=== PATIENT | male | born 1975 | race Hispanic/Latino ===

== ENCOUNTER 2018-05-19 19:26 | Emergency (ER) | payer BC ==
[2018-05-19] MEDS ORDERED: IBUPROFEN 400 MG TAB ONE (20:05)
[2018-05-19] MEDS ORDERED: NA CHLORIDE 0.9% 50 ML IV ONE (20:05)
[2018-05-19] MEDS ORDERED: DEXAMETHASONE 4 MG/ML VIAL ONE (20:05)
[2018-05-19] MEDS ORDERED: CEFTRIAXONE/SWI 1gm 1 GM/10 ML SYR ONE (20:05)
[2018-05-19] MEDS ORDERED: NA CHLORIDE 0.9% 1,000 ML ONE (20:05)
[2018-05-19] MEDS ORDERED: CLINDAMYCIN 900MG/D5W 900 MG/50 ML IVPB IV ONE (20:05)
[2018-05-19 20:19] LABS: Absolute Monocytes 0.9 K/uL (0.1-1.3); Basophils % 0.5 % (0-1.3); Eosinophils % 0.3 % (0-4.4); Hematocrit 40.2 % (39.6-49.0); Lymphocytes % 12.6 % (15.3-44.8); MCH 32.4 pg (27.0-35.0); MCV 94.9 fL (80-100); MPV 9.3 fL (7.6-11.3); Monocytes % 11.6 % (3.3-12.3); RBC Red Blood Cell Count 4.24 M/uL (4.33-5.43)
--- NOTE | 2018-05-19 20:24 | RAD REPORT ---
EXAM DESCRIPTION: CT - Soft Tissue Neck W/Contr - 05/19/2018 8:10 pm CLINICAL HISTORY: Sore throat, dysphagia TECHNIQUE: During dynamic enhancement using 100 milliliters nonionic IV contrast, axial 3 mm thick i mages of the neck were obtained. Sagittal and coronal reformatted images were generated and reviewed. All CT scans are performed using dose optimization technique as appropriate and may include automated exposure control or mA/KV adjustment according to patient size. FINDINGS: Intracranial portion examination shows no acute finding. No movable will content abnormali ty. Mastoid air cells and paranasal sinuses are clear. No nasopharyngeal abnormality seen. Left tonsils within normal limits. Right tonsil is enlarged relat sarah to the left. No clearly defined tonsillar abscess or drainable fluid collections seen. Soft tissu e prominence of the tonsil extends into the right vallecula no epiglottis thickening. No vocal cord m ass or asymmetry. There is no retropharyngeal abscess or soft tissue thickening. The parapharyngeal f at is normal. No mass or focal abnormality at the tongue base. Multiple right-sided lymph nodes are present largest measuring 17 x 10 mm. No necrotic lymph node. The parotid, submandibular and thyroid gland tissue unremarkable. IMPRESSION: Right-sided tonsillitis pattern with no tonsillar abscess identifiable. Multiple reactive lymph nodes in the right side neck. No necrotic or abscessed lymph node.
[2018-05-19 20:50] LABS: Albumin 3.6 g/dL (3.4-5.0); Bilirubin Total 0.8 mg/dL (0.2-1.0); Potassium 4.1 mmol/L (3.5-5.1); Protein, Total 7.6 g/dL (6.4-8.2)
[2018-05-19 20:53] LABS: Urine Blood TRACE (NEG); Urine Glucose NEGATIVE (NEG); Urine Protein NEGATIVE (NEG)
--- NOTE | 2018-05-19 21:24 | ER ---
Nurse's Notes [facility] Name: Jeffery Ontiveros Age: 42 yrs Sex: Male : 1975 Arrival Date: 05/19/2018 Time: 19:29 Bed 30 Private MD: Iram Hodge K Diagnosis: Acute tonsillitis, unspecified;Fever, unspecified Presentation: 05/19 19:37 Presenting complaint: Patient states: difficulty swallowing/sore throat for the last 4 mg2 days, was seen in a clinic and was tested negative for flu and strep. Transition of care: patient was not received from another setting of care. Onset of symptoms was May 17, 2018. Risk Assessment: Do you want to hurt yourself or someone else? Patient reports no desire to harm self or others. Initial Sepsis Screen: Does the patient meet any 2 criteria? No. Patient's initial sepsis screen is negative. Does the patient have a suspected source of infection? No. Patient's initial sepsis screen is negative. Care prior to arrival: None. 19:37 Method Of Arrival: Ambulatory mg2 19:37 Acuity: JAIMEE 4 mg2 Historical: - Allergies: 19:41 No Known Allergies; mg2 - Home Meds: 19:41 prednisone Oral [Active]; mg2 - PMHx: 19:41 heart problem; mg2 - PSHx: 19:41 None; mg2 - Immunization history:: Flu vaccine is not up to date. - Social history:: Smoking status: Patient/guardian denies using tobacco, Patient uses alcohol, occasionally. Patient/guardian denies using street drugs, IV drugs. - Ebola Screening: : No symptoms or risks identified at this time. - Family history:: not pertinent. Screenin:43 Abuse screen: Denies threats or abuse. Denies injuries from another. Nutritional mg2 screening: No deficits noted. Tuberculosis screening: No symptoms or risk factors identified. Fall Risk None identified. Assessment: 19:43 General: Appears in no apparent distress. comfortable, Behavior is calm, cooperative. mg2 Pain: Complains of pain in throat. Neuro: No deficits noted. Cardiovascular: Capillary refill < 3 seconds Patient's skin is warm and dry. Respiratory: Airway is patent Respiratory effort is even, unlabored. GI: Reports dysphagia. : No deficits noted. EENT: Throat is reddened. Derm: Skin is intact, is healthy with good turgor, Skin is pink, warm \T\ dry. normal. Musculoskeletal: No signs and/or symptoms reported regarding the musculoskeletal system. 19:44 Respiratory: Breath sounds are clear. mg2 22:52 Reassessment: called back to state that the dr had told pt to be off for 2 days fc and work release was written for him to return tomorrow. Discussed with Dr Esparza and note to be rewritten for pt to return on Sun. the . Vital Signs: 19:39 BP 135 / 75; Pulse 104; Resp 18; Temp 101.3; Pulse Ox 100% on R/A; Weight 98.88 kg; mg2 Height 5 ft. 5 in. (165.10 cm); Pain 10/10; 20:35 BP 136 / 83; Pulse 92; Resp 18; Pulse Ox 100% on R/A; Pain 6/10; mg2 21:29 BP 126 / 75; Pulse 85; Resp 18; Temp 98.2; Pulse Ox 98% on R/A; Pain 0/10; mg2 19:39 Body Mass Index 36.28 (98.88 kg, 165.10 cm) mg2 ED Course: 19:29 Patient arrived in ED. es 19:29 Iram Hodge MD is Private Physician. es 19:35 Sidney Esparza MD is Attending Physician. kolby 19:37 Waldo Lopez RN is Primary Nurse. mg2 19:39 Triage completed. mg2 19:42 Arm band placed on. mg2 19:43 No provider procedures requiring assistance completed. mg2 19:44 Patient has correct armband on for positive identification. Pulse ox on. NIBP on. mg2 20:10 CT completed. Patient moved to CT via wheelchair. Patient moved back from CT. cw1 20:10 CT Soft Tissue Neck W/contr In Process Unspecified. EDMS 20:11 Inserted saline lock: 20 gauge in right antecubital area, using aseptic technique. mg2 Blood collected. 21:23 Iram Hodge MD is Referral Physician. kolby 21:23 Ruth Berry MD is Referral Physician. kolby 21:36 IV discontinued, intact, bleeding controlled, No redness/swelling at site. Pressure mg2 dressing applied. 22:51 Primary Nurse role handed off by Waldo Lopez, ISAC fc Administered Medications: 20:11 Drug: Motrin 800 mg Route: PO; mg2 21:29 Follow up: Response: No adverse reaction mg2 20:26 Drug: Decadron - Dexamethasone 10 mg Route: IVP; Site: right antecubital; mg2 21:29 Follow up: Response: No adverse reaction; Marked relief of symptoms mg2 20:27 Drug: Rocephin - (cefTRIAXone) 1 grams Route: IVPB; Infused Over: 30 mins; Site: right mg2 antecubital; 21:28 Follow up: Response: No adverse reaction; IV Status: Completed infusion mg2 20:34 Drug: NS 0.9% 1000 ml Route: IV; Rate: 1 bolus; Site: right antecubital; mg2 21:29 Follow up: Response: No adverse reaction; IV Status: Completed infusion mg2 20:34 Drug: Clindamycin 900 mg Route: IVPB; Infused Over: 30 mins; Site: right antecubital; mg2 21:29 Follow up: Response: No adverse reaction; IV Status: Completed infusion mg2 21:42 Drug: Clindamycin 300 mg Route: PO; aa1 21:43 Follow up: Response: Medication administered at discharge. aa1 Outcome: 21:24 Discharge ordered by . kolby 21:36 Discharged to home ambulatory, with family. mg2 21:36 Condition: stable 21:36 Discharge instructions given to patient, family, Instructed on discharge instructions, follow up and referral plans. medication usage, Demonstrated understanding of instructions, follow-up care, medications, Prescriptions given X 1. 21:43 Patient left the ED. mg2 23:10 Patient left the ED. Signatures: Dispatcher [employer] Ines Gross RN RN aa1 Sidney Esparza MD MD cha Salyer, Edna es Chretien, Felicia, RN RN fc Woodley, Crystal Waldo Daigle RN RN mg2
--- NOTE | 2018-05-19 21:24 | EDPHYS ---
Physician Documentation [facility] Name: Jeffery Ontiveros Age: 42 yrs Sex: Male : 1975 Arrival Date: 05/19/2018 Time: 19:29 Bed 30 Private MD: Iram Hodge K ED Physician Sidney Esparza HPI: 05/19 19:50 This 42 yrs old Male presents to ER via Ambulatory with complaints of Sore kolby Throat, Neck Pain, >24Hrs Old. 19:50 The patient presents with sore throat. The patient describes throat pain as constant, kolby raw. Onset: The symptoms/episode began/occurred 3 day(s) ago. Severity of symptoms: At their worst the symptoms were moderate, in the emergency department the symptoms are unchanged. Modifying factors: The symptoms are alleviated by nothing, the symptoms are aggravated by fluids, foods, swallowing, Patient's oral intake status: limited fluid intake, limited food intake. Associated signs and symptoms: Pertinent positives: fever, Sore throat. The patient has not experienced similar symptoms in the past. Historical: - Allergies: 19:41 No Known Allergies; mg2 - Home Meds: 19:41 prednisone Oral [Active]; mg2 - PMHx: 19:41 heart problem; mg2 - PSHx: 19:41 None; mg2 - Immunization history:: Flu vaccine is not up to date. - Social history:: Smoking status: Patient/guardian denies using tobacco, Patient uses alcohol, occasionally. Patient/guardian denies using street drugs, IV drugs. - Ebola Screening: : No symptoms or risks identified at this time. - Family history:: not pertinent. ROS: 19:50 Eyes: Negative for injury, pain, redness, and discharge, Cardiovascular: Negative for kolby chest pain, palpitations, and edema, Respiratory: Negative for shortness of breath, cough, wheezing, and pleuritic chest pain, Abdomen/GI: Negative for abdominal pain, nausea, vomiting, diarrhea, and constipation, Back: Negative for injury and pain, : Negative for injury, bleeding, discharge, and swelling, MS/Extremity: Negative for injury and deformity, Skin: Negative for injury, rash, and discoloration, Neuro: Negative for headache, weakness, numbness, tingling, and seizure, Psych: Negative for depression, anxiety, suicide ideation, homicidal ideation, and hallucinations, Allergy/Immunology: Negative for hives, rash, and allergies, Endocrine: Negative for neck swelling, polydipsia, polyuria, polyphagia, and marked weight changes, Hematologic/Lymphatic: Negative for swollen nodes, abnormal bleeding, and unusual bruising. 19:50 Constitutional: Positive for body aches, chills, fever. 19:50 ENT: Positive for difficulty handling secretions, difficulty swallowing, sore throat. 19:50 Neck: Positive for pain at rest, swollen nodes, of the right jaw and left jaw. Exam: 19:50 Constitutional: This is a well developed, well nourished patient who is awake, alert, kolby and in no acute distress. Head/Face: Normocephalic, atraumatic. Eyes: Pupils equal round and reactive to light, extra-ocular motions intact. Lids and lashes normal. Conjunctiva and sclera are non-icteric and not injected. Cornea within normal limits. Periorbital areas with no swelling, redness, or edema. Neck: Trachea midline, no thyromegaly or masses palpated, and no cervical lymphadenopathy. Supple, full range of motion without nuchal rigidity, or vertebral point tenderness. No Meningismus. Chest/axilla: Normal chest wall appearance and motion. Nontender with no deformity. No lesions are appreciated. Cardiovascular: Regular rate and rhythm with a normal S1 and S2. No gallops, murmurs, or rubs. Normal PMI, no JVD. No pulse deficits. Respiratory: Lungs have equal breath sounds bilaterally, clear to auscultation and percussion. No rales, rhonchi or wheezes noted. No increased work of breathing, no retractions or nasal flaring. Abdomen/GI: Soft, non-tender, with normal bowel sounds. No distension or tympany. No guarding or rebound. No evidence of tenderness throughout. Back: No spinal tenderness. No costovertebral tenderness. Full range of motion. Male : Normal genitalia with no discharge or lesions. Skin: Warm, dry with normal turgor. Normal color with no rashes, no lesions, and no evidence of cellulitis. MS/ Extremity: Pulses equal, no cyanosis. Neurovascular intact. Full, normal range of motion. Neuro: Awake and alert, GCS 15, oriented to person, place, time, and situation. Cranial nerves II-XII grossly intact. Motor strength 5/5 in all extremities. Sensory grossly intact. Cerebellar exam normal. Normal gait. Psych: Awake, alert, with orientation to person, place and time. Behavior, mood, and affect are within normal limits. 19:50 ENT: Posterior pharynx: Tonsils: enlarged on the right, enlarged on the left, with erythema, with exudate, Uvula: normal, swelling, that is moderate, that is marked, erythema, that is moderate, exudate, that is moderate, peritonsillar mass, is noted on the right. Vital Signs: 19:39 BP 135 / 75; Pulse 104; Resp 18; Temp 101.3; Pulse Ox 100% on R/A; Weight 98.88 kg; mg2 Height 5 ft. 5 in. (165.10 cm); Pain 10/10; 20:35 BP 136 / 83; Pulse 92; Resp 18; Pulse Ox 100% on R/A; Pain 6/10; mg2 21:29 BP 126 / 75; Pulse 85; Resp 18; Temp 98.2; Pulse Ox 98% on R/A; Pain 0/10; mg2 19:39 Body Mass Index 36.28 (98.88 kg, 165.10 cm) mg2 MDM: 19:35 [facility]50 Data reviewed: vital signs, nurses notes, lab test result(s), radiologic studies, CT kolby scan. 05/19 19:50 Order name: CBC with Diff; Complete Time: 21:21 [facility] 05/19 19:50 Order name: Comprehensive Metabolic Panel; Complete Time: 21:21 [facility] 05/19 19:50 Order name: CT Soft Tissue Neck W/contr; Complete Time: 21:21 [facility] 05/19 20:33 Order name: Urine Dipstick--Ancillary (enter results); Complete Time: 21:21 [facility] 05/19 21:23 Order name: PO challenge; Complete Time: 21:28 [facility] Administered Medications: 20:11 Drug: Motrin 800 mg Route: PO; mg2 21:29 Follow up: Response: No adverse reaction mg2 20:26 Drug: Decadron - Dexamethasone 10 mg Route: IVP; Site: right antecubital; mg2 21:29 Follow up: Response: No adverse reaction; Marked relief of symptoms mg2 20:27 Drug: Rocephin - (cefTRIAXone) 1 grams Route: IVPB; Infused Over: 30 mins; Site: right mg2 antecubital; 21:28 Follow up: Response: No adverse reaction; IV Status: Completed infusion mg2 20:34 Drug: NS 0.9% 1000 ml Route: IV; Rate: 1 bolus; Site: right antecubital; mg2 21:29 Follow up: Response: No adverse reaction; IV Status: Completed infusion mg2 20:34 Drug: Clindamycin 900 mg Route: IVPB; Infused Over: 30 mins; Site: right antecubital; mg2 21:29 Follow up: Response: No adverse reaction; IV Status: Completed infusion mg2 21:42 Drug: Clindamycin 300 mg Route: PO; aa1 21:43 Follow up: Response: Medication administered at discharge. aa1 Disposition: 05/19/18 21:24 Discharged to Home. Impression: Acute tonsillitis, unspecified, Fever, unspecified. - Condition is Stable. - Discharge Instructions: Fever, Adult, Tonsillitis, Tonsillitis, [id number]. - Prescriptions for Clindamycin HCl 300 mg Oral Capsule - take 1 capsule by ORAL route every 6 hours for 10 days; 40 capsule. - Medication Reconciliation Form, Thank You Letter, Antibiotic Education, Prescription Opioid Use, Work release form form. - Follow up: Iram Hodge MD; When: 2 - 3 days; Reason: Recheck today's complaints, Continuance of care, Re-evaluation by your physician. Follow up: Ruth Berry MD; When: 1 - 2 days; Reason: Recheck today's complaints, Re-evaluation by your physician. - Problem is new. - Symptoms have improved. Signatures: Dispatcher [employer] EDInes Jeter RN RN aa1 Sidney Esparza MD MD cha Chretien, Felicia, RN RN Waldo Lopez RN RN mg2 Corrections: (The following items were deleted from the chart) 21:43 21:24 05/19/2018 21:24 Discharged to Home. Impression: Acute tonsillitis, unspecified; mg2 Fever, unspecified. Condition is Stable. Forms are Medication Reconciliation Form, Thank You Letter, Antibiotic Education, Prescription Opioid Use. Follow up: Iram Hodge; When: 2 - 3 days; Reason: Recheck today's complaints, Continuance of care, Re-evaluation by your physician. Follow up: Ruth Berry; When: 1 - 2 days; Reason: Recheck today's complaints, Re-evaluation by your physician. Problem is new. Symptoms have improved. [facility] 23:10 21:43 05/19/2018 21:24 Discharged to Home. Impression: Acute tonsillitis, unspecified; fc Fever, unspecified. Condition is Stable. Discharge Instructions: Fever, Adult, Tonsillitis, Tonsillitis, [id number]. Prescriptions for Clindamycin HCl 300 mg Oral Capsule - take 1 capsule by ORAL route every 6 hours for 10 days; 40 capsule. and Forms are Medication Reconciliation Form, Thank You Letter, Antibiotic Education, Prescription Opioid Use, Work release form. Follow up: Iram Hodge; When: 2 - 3 days; Reason: Recheck today's complaints, Continuance of care, Re-evaluation by your physician. Follow up: Ruth Berry; When: 1 - 2 days; Reason: Recheck today's complaints, Re-evaluation by your physician. Problem is new. Symptoms have improved. mg2
[2018-05-19] MEDS ORDERED: CLINDAMYCIN HCL 150 MG CAP ONE (21:47)
== END 2018-05-19 23:10 | disposition home or self-care (01) ==
LOC: ER 19:26
DX: J03.90 Acute tonsillitis, unspecified (principal)
CPT/HCPCS: 36415; 70491; 80053; 81003; 85025; 96365; 96368; 96375; 99284; J0696; J7030; Q9967

== ENCOUNTER 2019-08-28 12:44 | Inpatient (IN) | payer BC, SELFPAY ==
[2019-08-28 13:29] LABS: Absolute Lymphocytes (CBC) 2.5 K/uL (0.7-4.9); Basophils % 0.7 % (0-1.3); Hematocrit 45.4 % (39.6-49.0); Lymphocytes % 25.9 % (15.3-44.8); MPV 9.4 fL (7.6-11.3); RBC Red Blood Cell Count 4.84 M/uL (4.33-5.43)
[2019-08-28 13:32] LABS: Protime INR 1.06
--- NOTE | 2019-08-28 13:43 | RAD REPORT ---
EXAM DESCRIPTION: RAD - Chest Single View - 08/28/2019 1:33 pm CLINICAL HISTORY: CHEST PAIN Chest pain. COMPARISON: Chest Single View dated 07/23/2016; CHEST SINGLE VIEW dated 12/30/2012 FINDINGS: Portable technique limits examination quality. The lungs are grossly clear. The heart is normal in size. No displaced fractures. IMPRESSION: No acute intrathoracic process suspected.
[2019-08-28 13:48] LABS: Albumin 3.9 g/dL (3.4-5.0); Bilirubin Direct 0.2 mg/dL (0-0.2); Bilirubin Total 1.4 mg/dL (0.2-1.0); Magnesium 2.2 mg/dL (1.8-2.4); Potassium 4.1 mmol/L (3.5-5.1); Protein, Total 7.5 g/dL (6.4-8.2); Troponin (Emerg Dept Use Only) 0.17 ng/mL (0.0-0.045)
--- NOTE | 2019-08-28 14:05 | ER ---
Nurse's Notes [facility] Name: Jeffery Ontiveros Age: 43 yrs Sex: Male : 1975 Arrival Date: 08/28/2019 Time: 12:45 Bed 3 Private MD: Diagnosis: Supraventricular tachycardia Presentation: 08/28 12:54 Presenting complaint: states: Chest pain at 0800 with nausea, lightheadness, SOB, ca1 sweating profusely. He had this episode about a month ago, went to a [employer] supervisor and everything tested fine. Transition of care: patient was not received from another setting of care. Onset of symptoms was August 28, 2019. Risk Assessment: Do you want to hurt yourself or someone else? Patient reports no desire to harm self or others. Initial Sepsis Screen: Does the patient meet any 2 criteria? No. Patient's initial sepsis screen is negative. Does the patient have a suspected source of infection? No. Patient's initial sepsis screen is negative. Care prior to arrival: None. 12:54 Method Of Arrival: Wheelchair ca1 12:54 Acuity: JAIMEE 1 ph Historical: - Allergies: 12:58 No Known Allergies; ca1 - Home Meds: 12:58 None [Active]; ca1 - PMHx: 12:58 heart problem; ca1 - PSHx: 12:58 None; ca1 - Immunization history:: Adult Immunizations up to date, Flu vaccine is not up to date. - Coronavirus screen:: The patient has NOT traveled to [place] in the past 14 days. The patient has NOT had contact with known/suspected case of Coronavirus?. - Social history:: Smoking status: Patient denies any tobacco usage or history of. - Ebola Screening: : Patient negative for fever greater than or equal to 101.5 degrees Fahrenheit, and additional compatible Ebola Virus Disease symptoms Patient denies exposure to infectious person Patient denies travel to an Ebola-affected area in the 21 days before illness onset No symptoms or risks identified at this time. Screenin:03 Abuse screen: Denies threats or abuse. Nutritional screening: No deficits noted. rb1 Tuberculosis screening: No symptoms or risk factors identified. Fall Risk None identified. Assessment: 13:00 Reassessment: EKG done in Triage. SVT at 219. ca1 13:03 Pain: Complains of pain in chest rb1 13:03 General: Appears uncomfortable, Behavior is calm. rb1 13:03 Pain: Pain began 0800 this morning. Neuro: Level of Consciousness is awake, alert, rb1 obeys commands, Oriented to person, place, time, situation. Neuro: Reports being light headed. Cardiovascular: Patient's skin is warm and dry. Rhythm is SVT. Respiratory: Airway is patent Respiratory effort is even, unlabored, Respiratory pattern is regular, symmetrical. Respiratory: Reports shortness of breath. GI: Reports nausea. : No signs and/or symptoms were reported regarding the genitourinary system. 13:25 Reassessment: Patient appears in no apparent distress at this time. Patient and/or rb1 family updated on plan of care and expected duration. Pain level reassessed. Patient is alert, oriented x 3, equal unlabored respirations, skin warm/dry/pink. Patient denies pain at this time. Patient states feeling better. Respiratory: Denies shortness of breath. Derm: Skin is pink, warm \T\ dry. 14:25 Reassessment: Patient appears in no apparent distress at this time. No changes from rb1 previously documented assessment. Family at the bedside. 15:22 Reassessment: Patient appears in no apparent distress at this time. Patient and/or rb1 family updated on plan of care and expected duration. Pain level reassessed. Patient is alert, oriented x 3, equal unlabored respirations, skin warm/dry/pink. Pt. is talking on his telephone. Patient states feeling better. 15:43 Reassessment: Tried to call report, I was asked to call back because Madeline RN is rb1 preparing a pt. for transport to the OR. 16:05 Reassessment: Patient appears in no apparent distress at this time. No changes from rb1 previously documented assessment. Patient denies pain at this time. Respiratory: Denies shortness of breath. Vital Signs: 12:58 BP 96 / 69; Pulse 112; Resp 19 S; Temp 97.8(O); Pulse Ox 98% on R/A; Weight 97.52 kg; ca1 Height 5 ft. 5 in. (165.10 cm) (R); 13:05 BP 92 / 37; Pulse 219; iw 13:14 BP 135 / 89; Pulse 98; Resp 16 S; iw 13:30 BP 121 / 83; Pulse 95; Resp 17; Pulse Ox 98% ; Pain 0/10; rb1 13:45 BP 122 / 88; Pulse 98; Resp 20; Pulse Ox 100% on R/A; Pain 0/10; rb1 14:00 BP 124 / 96; Pulse 95; Resp 16; Pulse Ox 99% on R/A; Pain 0/10; rb1 14:15 BP 123 / 92; Pulse 92; Resp 14; Pulse Ox 99% on R/A; Pain 0/10; rb1 14:30 BP 131 / 94; Pulse 93; Resp 16; Pulse Ox 100% on R/A; Pain 0/10; rb1 15:00 BP 117 / 84; Pulse 84; Resp 17; Pulse Ox 99% on R/A; rb1 15:30 BP 116 / 84; Pulse 89; Resp 18; Pulse Ox 100% on R/A; rb1 12:58 Body Mass Index 35.78 (97.52 kg, 165.10 cm) ca1 ED Course: 12:45 Patient arrived in ED. as 12:56 Triage completed. ca1 12:58 Ron Dempsey PA is PHCP. [facility] 12:58 Luis Ramirez MD is Attending Physician. jm 13:03 Patient has correct armband on for positive identification. Bed in low position. Call rb1 light in reach. Side rails up X 1. binder caser on. Pulse ox on. NIBP on. Warm blanket given. 13:03 Inserted saline lock: 20 gauge in right antecubital area, using aseptic technique. rb1 ,using aseptic technique. IV inserted by ISAC Ott, triage nurse. Blood collected. Patient maintains SpO2 saturation greater than 95% on room air. 13:10 Inserted saline lock: 18 gauge in left antecubital area, using aseptic technique. dh3 13:11 Arm band placed on. EKG completed in triage. Results shown to MD. ca1 13:17 Danita Sepulveda, ISAC is Primary Nurse. rb1 14:01 Lillie Marrero MD is Hospitalizing Provider. [facility] 16:12 No provider procedures requiring assistance completed. Patient admitted, IV remains in rb1 place. Administered Medications: 13:10 Drug: Adenosine 12 mg Route: IVP; Site: right antecubital; rb1 13:25 Follow up: Response: No adverse reaction rb1 13:10 Drug: NS 0.9% 1000 ml Route: IV; Rate: 1000 ml; Site: right antecubital; rb1 14:28 Drug: Aspirin Chewable Tablet 324 mg Route: PO; rb1 15:00 Follow up: Response: No adverse reaction rb1 Outcome: 14:01 Decision to Hospitalize by Provider. shan 16:12 Patient left the ED. iw 16:12 Admitted to Tele accompanied by tech, family with patient, via stretcher, room 404, rb1 with chart, Report called to ISAC Correa 16:12 Condition: stable 16:12 Instructed on the need for admit. Signatures: Ron Dempsey PA PA jmm Martinez, Amelia as Bridgette Bang, RN RN iw Alicia Mcwilliams RN RN Danita Sepulveda RN RN rb1 Haydee Berry 3 Namrata Lawson RN RN ca1 Corrections: (The following items were deleted from the chart) 13:05 12:54 Acuity: JAIMEE 3 ca1 ph 13:14 12:50 Reassessment: EKG done in Triage. SVT at 219. ca1 ca1 14:44 13:03 General: Appears uncomfortable, Behavior is calm, rb1 rb1
[2019-08-28] MEDS ORDERED: ASPIRIN 81 MG CHEWABLE TABLET ONE (14:30)
[2019-08-28] MEDS ORDERED: ONDANSETRON 4 MG/2 ML VIAL IV PRN (14:59)
[2019-08-28] MEDS ORDERED: ACETAMINOPHEN 500 MG TAB PO PRN (14:59)
[2019-08-28] MEDS ORDERED: ALPRAZOLAM 0.25 MG TABLET PO PRN (14:59)
--- NOTE | 2019-08-28 15:13 | EDPHYS ---
Physician Documentation [facility] Name: Jeffery Ontiveros Age: 43 yrs Sex: Male : 1975 Arrival Date: 08/28/2019 Time: 12:45 Bed 3 Private MD: ED Physician Luis Ramirez HPI: 08/28 13:13 This 43 yrs old Male presents to ER via Wheelchair with complaints of Chest jmm Pain. 13:13 The patient or guardian reports chest pain that is located primarily in the substernal jmm area. Onset: this morning, at 08:00. The pain does not radiate. Duration: The patient or guardian reports a single episode, that is still ongoing. Modifying factors: The symptoms are alleviated by nothing. The patient has experienced similar episodes in the past, a few times. This is a 43 year old male with a history of svt that presents to the ED with complaints of chest pain. While patient was at work he began to feel sweaty which is similar to previous episodes of svt. . Historical: - Allergies: 12:58 No Known Allergies; ca1 - Home Meds: 12:58 None [Active]; ca1 - PMHx: 12:58 heart problem; ca1 - PSHx: 12:58 None; ca1 - Immunization history:: Adult Immunizations up to date, Flu vaccine is not up to date. - Coronavirus screen:: The patient has NOT traveled to [place] in the past 14 days. The patient has NOT had contact with known/suspected case of Coronavirus?. - Social history:: Smoking status: Patient denies any tobacco usage or history of. - Ebola Screening: : Patient negative for fever greater than or equal to 101.5 degrees Fahrenheit, and additional compatible Ebola Virus Disease symptoms Patient denies exposure to infectious person Patient denies travel to an Ebola-affected area in the 21 days before illness onset No symptoms or risks identified at this time. ROS: 13:13 Constitutional: Negative for fever, chills, and weight loss. jmm 13:13 Cardiovascular: Positive for chest pain. 13:13 Respiratory: Positive for shortness of breath. 13:13 All other systems are negative. Exam: 13:13 Constitutional: This is a well developed, well nourished patient who is awake, alert, jmm and in no acute distress. Head/Face: atraumatic. Eyes: EOMI, no conjunctival erythema appreciated ENT: Moist Mucus Membranes Neck: Trachea midline, Supple Chest/axilla: Normal chest wall appearance and motion. 13:13 Abdomen/GI: Non distended, soft Back: Normal ROM Skin: General appearance color normal MS/ Extremity: Moves all extremities, no obvious deformities appreciated, no edema noted to the lower extremities Neuro: Awake and alert, normal gait Psych: Behavior is normal, Mood is normal, Patient is cooperative and pleasant 13:13 Cardiovascular: Rate: tachycardic. 13:13 Respiratory: the patient does not display signs of respiratory distress, Respirations: normal, Breath sounds: are clear throughout. Vital Signs: 12:58 BP 96 / 69; Pulse 112; Resp 19 S; Temp 97.8(O); Pulse Ox 98% on R/A; Weight 97.52 kg; ca1 Height 5 ft. 5 in. (165.10 cm) (R); 13:05 BP 92 / 37; Pulse 219; iw 13:14 BP 135 / 89; Pulse 98; Resp 16 S; iw 13:30 BP 121 / 83; Pulse 95; Resp 17; Pulse Ox 98% ; Pain 0/10; rb1 13:45 BP 122 / 88; Pulse 98; Resp 20; Pulse Ox 100% on R/A; Pain 0/10; rb1 14:00 BP 124 / 96; Pulse 95; Resp 16; Pulse Ox 99% on R/A; Pain 0/10; rb1 14:15 BP 123 / 92; Pulse 92; Resp 14; Pulse Ox 99% on R/A; Pain 0/10; rb1 14:30 BP 131 / 94; Pulse 93; Resp 16; Pulse Ox 100% on R/A; Pain 0/10; rb1 15:00 BP 117 / 84; Pulse 84; Resp 17; Pulse Ox 99% on R/A; rb1 15:30 BP 116 / 84; Pulse 89; Resp 18; Pulse Ox 100% on R/A; rb1 12:58 Body Mass Index 35.78 (97.52 kg, 165.10 cm) ca1 MDM: 13:04 Patient medically screened. jmm 13:56 The patient was given aspirin in the Emergency Department. Data reviewed: vital signs, jmm nurses notes. ED course: I discussed the patient with Dr. Marrero whom accepted admission. . 08/28 13:09 Order name: Basic Metabolic Panel ph 08/28 13:09 Order name: CBC with Diff ph 08/28 13:09 Order name: LFT's ph 08/28 13:09 Order name: Magnesium ph 08/28 13:09 Order name: NT PRO-BNP ph 08/28 13:09 Order name: PT-INR ph 08/28 13:09 Order name: Troponin (emerg Dept Use Only) ph 08/28 13:31 Order name: CBC with Automated Diff; Complete Time: 13:33 EDMS 08/28 13:34 Order name: Protime (+INR); Complete Time: 13:50 EDMS 08/28 13:48 Order name: Basic Metabolic Panel; Complete Time: 13:50 EDMS 08/28 13:48 Order name: Liver (Hepatic) Function; Complete Time: 13:50 EDMS 08/28 13:48 Order name: Troponin (Emerg Dept Use Only); Complete Time: 13:50 EDMS 08/28 13:48 Order name: NT PRO-BNP; Complete Time: 13:50 EDMS 08/28 13:48 Order name: Magnesium; Complete Time: 13:50 EDMS 08/28 13:09 Order name: XRAY Chest (1 view) ph 08/28 13:09 Order name: EKG; Complete Time: 13:10 ph 08/28 13:09 Order name: Cardiac monitoring; Complete Time: 13:20 ph 08/28 13:09 Order name: EKG - Nurse/Tech; Complete Time: 13:20 ph 08/28 13:09 Order name: IV Saline Lock; Complete Time: 13:20 ph 08/28 13:09 Order name: Labs collected and sent; Complete Time: 13:20 ph 08/28 13:09 Order name: O2 Per Protocol; Complete Time: 13:20 ph 08/28 13:09 Order name: O2 Sat Monitoring; Complete Time: 13:20 ph 08/28 13:54 Order name: RAD; Complete Time: 13:55 EDMS 08/28 16:11 Order name: Thyroid Stimulating Hormone; Complete Time: 16:25 EDMS Administered Medications: 13:10 Drug: Adenosine 12 mg Route: IVP; Site: right antecubital; rb1 13:25 Follow up: Response: No adverse reaction rb1 13:10 Drug: NS 0.9% 1000 ml Route: IV; Rate: 1000 ml; Site: right antecubital; rb1 14:28 Drug: Aspirin Chewable Tablet 324 mg Route: PO; rb1 15:00 Follow up: Response: No adverse reaction rb1 Disposition: 18:58 Co-signature as Attending Physician, Luis Ramirez MD I agree with the assessment and [facility] plan of care. Disposition: 08/28/19 14:01 Hospitalization ordered by Lillie Marrero for Observation. Preliminary diagnosis is Supraventricular tachycardia. - Bed requested for Telemetry/MedSurg (observation). - Status is Observation. iw - Condition is Stable. - Problem is an acute exacerbation. - Symptoms have improved. Signatures: Dispatcher [employer] EDMS Luis Ramirez MD MD kdr Ron Dempsey PA PA [facility] Bridgette Bang, RN RN iw Ralf Herring em1 Alicia Mcwilliams, RN RN ph Danita Sepulveda, RN RN rb1 Acob, Namrata RN RN ca1 Corrections: (The following items were deleted from the chart) 14:18 14:01 Hospitalization Ordered by Lillie Marrero MD for Inpatient Admission. Preliminary [facility] diagnosis is Supraventricular tachycardia. Bed requested for Intensive Care Unit. Status is Inpatient Admission. Condition is Stable. Problem is an acute exacerbation. Symptoms have improved. [facility] 15:23 14:18 08/28/2019 14:01 Hospitalization Ordered by Lillie Marrero MD for Observation. em1 Preliminary diagnosis is Supraventricular tachycardia. Bed requested for Telemetry/MedSurg (observation). Status is Observation. Condition is Stable. Problem is an acute exacerbation. Symptoms have improved. [facility] 16:12 15:23 08/28/2019 14:01 Hospitalization Ordered by Lillie Marrero MD for Observation. iw Preliminary diagnosis is Supraventricular tachycardia. Bed requested for Telemetry/MedSurg (observation). Status is Observation. Condition is Stable. Problem is an acute exacerbation. Symptoms have improved. em1
--- NOTE | 2019-08-28 15:40 | P.HP ---
Certification for Inpatient Patient admitted to: Observation With expected LOS: <2 Midnights Patient will require the following post-hospital care: None Practitioner: I am a practitioner with admitting privileges, knowledge of patient current condition, hospital course, and medical plan of care. Services: Services provided to patient in accordance with Admission requirements found in Title 42 Section 412.3 of the Code of Federal Regulations Patient History Date of Service: 08/28/19 Primary Care Provider: Neto Hodge Reason for admission: palpitation History of Present Illness: This patient is a 43-year-old Mexican-speaking male who presents for palpitation. He has a history of SVT in the past. He did not take any home medication. Patient reported that he start to experience palpitation around 9 o 'clock this morning. This is associated with some chest discomfort. No cough or sulfa breath. The chest discomfort did not radiate. The palpitation gotten worse after he drunk some coffee. No fever or chills. He experienced some nausea and no vomiting. No abdominal pain. No dizziness or syncope. He then played into the emergency room. In the ED, he was found to have tachycardia. EKG demonstrated SVT. CBC and a CMP is unremarkable. Troponin is mildly elevated which is 0.17. He was given IV adenosine and then his heart rate went down in the 100. He was admitted for observation. Now he is feeling better Allergies No Known Allergies Allergy (Unverified 12/30/12 05:52) Home medications list reviewed: Yes (none) - Past Medical/Surgical History Diabetic: No -: SVT Past Surgical History: Patient denies surgical history - Social History Smoking Status: Never smoker Review of Systems General: Unremarkable Eyes: Unremarkable ENT: Unremarkable Respiratory: Unremarkable Cardiovascular: Chest Pain, Palpitations Gastrointestinal: Nausea, Vomiting Genitourinary: Unremarkable Musculoskeletal: Unremarkable Integumentary: Unremarkable Neurological: Unremarkable Lymphatics: Unremarkable Physical Examination - Physical Exam General: Alert, In no apparent distress, Oriented x3, Cooperative HEENT: Atraumatic, Normocephalic, PERRLA, Mucous membr. moist/pink, Other Neck: Supple, 2+ carotid pulse no bruit, JVD not distended Respiratory: Clear to auscultation bilaterally, Normal air movement Cardiovascular: No edema, Normal pulses, Regular rate/rhythm, Normal S1 S2, Abnormal S3 Capillary refill: <2 Seconds Gastrointestinal: Normal bowel sounds, Soft and benign, Non-distended, No ascites, No tenderness, No masses, No rebound, No guarding Musculoskeletal: No clubbing, No swelling, No contractures, No erythema, No tenderness, No warmth Integumentary: No rashes, No breakdown, No significant lesion Neurological: Normal gait, Normal speech, Normal strength at 5/5 x4 extr, Normal tone, Sensation intact, Cranial nerves 3-12 intact, Normal reflexes 2+, Normal affect Lymphatics: No axilla or inguinal lymphadenopathy - Studies Laboratory Data (last 24 hrs) 08/28/19 13:10: PT 12.5, INR 1.06 08/28/19 13:10: WBC 9.8, Hgb 15.4, Hct 45.4, Plt Count 290 08/28/19 13:10: Sodium 141, Potassium 4.1, BUN 17, Creatinine 1.17, Glucose 106 , Magnesium 2.2, Total Bilirubin 1.4 H, AST 33, ALT 49, Alkaline Phosphatase 96 Assessment and Plan - Problems (Diagnosis) (1) SVT (supraventricular tachycardia) Current Visit: Yes Status: Acute (2) Elevated troponin Current Visit: Yes Status: Acute - Plan 08/28/19: This patient is a 42-year-old male who presented for palpitation. He has a history of SVT. He was found to have SVT in the ED. He received IV adenosine and now his rhythm returned to NSR. I started metoprolol 25 mg b.i.d. His troponin is elevated. This is likely secondary to SVT. Will follow up. Echo was also ordered. Art Supervisor will be consulted. 1. SVT: S/P IV adenosine. Started metoprolol 25 mg bid. Echo was ordered. Art Supervisor will be consulted. 2. Troponin elevation. Likely this is secondary to SVT. No chest pain now. Will follow up 3. DVT prophylaxes with Lovenox. Discharge Plan: Home Plan to discharge in: 24 Hours - Advance Directives Does patient have a Living Will: No Does patient have a Durable POA for Healthcare: No - Code Status/Comfort Care Code Status Assessed: Yes Code Status: Full Code Critical Care: No
[2019-08-28] MEDS ORDERED: ADENOSINE 6 MG/ 2ML VIAL IV ONE (16:00)
[2019-08-28] MEDS ORDERED: SODIUM CHL 0.9% 1000 ML BAG ONE (16:00)
[2019-08-28 16:49] VITALS: BMI 35.7
--- NOTE | 2019-08-28 17:48 | EKG ---
Test Date: 2019-08-28 Test Time: 13:01:50 Jacker: OSCAR MEASUREMENT RESULTS: Intervals: Rate: 219 MT: QRSD: 66 QT: 202 QTc: 385 [place]: P: MT: QRS: 63 T: -82 INTERPRETIVE STATEMENTS: Supraventricular tachycardia ST & T wave abnormality, consider inferolateral ischemia Abnormal ECG Compared to ECG 12/01/2016 06:17:05 ST (T wave) deviation now present Possible ischemia now present Sinus rhythm no longer present Electronically Signed On 08-28-19 17:47:54 DENITRATOR OPERATOR by Arun Wynne
[2019-08-28] MEDS ORDERED: METOPROLOL TAR 25 MG TAB PO SCH (18:00)
[2019-08-28] MEDS: ENOXAPARIN 40 MG/0.4 ML SQ SCH (18:32)
[2019-08-28] MEDS ORDERED: INFLUENZA VACCINE (for 3y+) 0.5 ML DOSE IMVAC ONE (21:00)
[2019-08-28 21:54] LABS: CKMB Creatine Kinase MB 4.6 ng/mL (0.3-3.6)
[2019-08-28 22:03] LABS: Troponin I 0.96 ng/mL (0.0-0.045)
--- NOTE | 2019-08-28 22:16 | CON ---
Identification: 43-year-old man. Chief Complaint: Heart racing. History Of Present Illness: Mr. Ontiveros came to the hospital, his heart racing. 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 The heart rate was 219. He received adenosine and is in sinus rhythm now. This is his third episode at least of h aving. He was given medications twice, took them for a few years, then stopped. First episode in 04 05, second 1 around 2015 or 2016, and this is the third episode. He otherwise takes no medications, has not continued any heart rhythm medications. We do not know what they were. Never was an electro route carrier, never went through an ablation. Patient does not have diabetes, hypertension, dyslipid emia. Uses no tobacco, no illegal drug. He tends to be a binge drinker, but binges few and far betw een. The last one was last Sunday night 6 days and it could be part of the reason he had this episod e of SVT. He try to avoid caffeine, but does not follow exercise, weight loss, or diet program. Physical Examination: Measurements: 5 feet 5 inches, 215 pounds. General: Obese. Alert, oriented, pleasant, not in distress. Lungs: Clear. Cardiac: Normal. Abdomen: Soft. Extremities: Normal. No cyanosis, clubbing, or edema. Diagnostic Studies: His EKG when he is in sinus rhythm is completely normal. Impression: Mr. Ontiveros has paroxysmal supraventricular tachycardia and the most likely treatment cassy t will benefit him is the so called pill in the pocket plan in which he would be given some metoprolo l 50 mg pills and if he gets a spell of SVT, he should try a vagal maneuver such as the diving reflex or immersing his head in water and then if that does not work, take 1 metoprolol pill crushed, it sh ould not be the slow release type of metoprolol and if that helps the spell go away, he does not need to do anything further. He could try a second one if the first does not work after 30 minutes and t hen go to the ER if that does not work. Ideally, he should visit an commercial real estate manager and undergo an EP study and ablation of either the small fibers around the AV node or concealed accessory pathway . HASEEB/JESSICA Voice ID: [id number] Report ID: [id number]
[2019-08-28] MEDS ORDERED: ENOXAPARIN 60 MG/0.6 ML SQ ONE (22:45)
[2019-08-29 06:16] LABS: Absolute Lymphocytes (CBC) 1.6 K/uL (0.7-4.9); Basophils % 0.6 % (0-1.3); Hematocrit 40.1 % (39.6-49.0); Lymphocytes % 29.4 % (15.3-44.8); MPV 9.7 fL (7.6-11.3); RBC Red Blood Cell Count 4.26 M/uL (4.33-5.43)
[2019-08-29 06:19] LABS: ALT/SGPT 40 U/L (12-78); AST/SGOT 27 U/L (15-37); Albumin 3.2 g/dL (3.4-5.0); Alkaline Phosphatase 84 U/L (45-117); BUN Blood Urea Nitrogen 18 mg/dL (7-18); Bicarbonate 26 mmol/L (21-32); Bilirubin Total 0.8 mg/dL (0.2-1.0); CKMB Creatine Kinase MB 3.7 ng/mL (0.3-3.6); Glucose Level 95 mg/dL (74-106); HDL Cholesterol 39 mg/dL (40-60); LDL Cholesterol, Calculated 72 (<130); Phosphorus 3.4 mg/dL (2.5-4.9); Potassium 3.9 mmol/L (3.5-5.1); Sodium Level 141 mmol/L (136-145)
[2019-08-29 06:23] LABS: Troponin I 0.73 ng/mL (0.0-0.045)
[2019-08-29] MEDS ORDERED: POTASSIUM CL SA 10 MEQ TAB PO ONE (07:43)
[2019-08-29] MEDS: ENOXAPARIN 40 MG/0.4 ML SQ SCH (09:00)
--- NOTE | 2019-08-29 12:05 | P.DS ---
Admission Date: 08/28/19 Discharge Date: 08/29/19 Primary Care Provider: Neto Hodge Disposition: ROUTINE DISCHARGE Discharge Condition: GOOD Reason for Admission: palpitation - Problems (1) SVT (supraventricular tachycardia) Current Visit: Yes Status: Acute (2) Elevated troponin Current Visit: Yes Status: Acute Brief History of Present Illness: This patient is a 43-year-old Estonian-speaking male who presents for palpitation. He has a history of SVT in the past. He did not take any home medication. Patient reported that he start to experience palpitation around 9 o 'clock at the morning of admission. This is associated with some chest discomfort. No cough or sulfa breath. The chest discomfort did not radiate. The palpitation gotten worse after he drunk some coffee. No fever or chills. He experienced some nausea and no vomiting. No abdominal pain. No dizziness or syncope. He then played into the emergency room. In the ED, he was found to have tachycardia. EKG demonstrated SVT. CBC and a CMP is unremarkable. Troponin is mildly elevated which is 0.17. He was given IV adenosine and then his heart rate went down in the 100. He was admitted for observation. Hospital Course: This patient was admitted for SVT. He has a history of SVT in the past. This is the 3rd time for him to have SVT. SVT was corrected by IV adenosine in the ED. Patient has been doing much better. Cardiology was consulted and recommended metoprolol 50 mg tabs in his pocket. Patient can take the 1 tabs if he has SVT spell. He can take another tab if one tab does not work after 30 min. Granulating Machine Operator also recommended vagal maneuvers. Patient has been doing very well after admission. No shortness of breath or chest pain. His troponin was elevated which is 0.97->0.73. Discussed ways road conductor who thought this is due to SVT. No need for cardiac catheterization. He recommended discharging patient. Vital Signs/Physical Exam: Temp Pulse Resp BP Pulse Ox 97.6 F 70 18 115/70 99 08/29/19 08:00 08/29/19 08:00 08/29/19 08:00 08/29/19 08:00 08/29/19 08:00 General: Alert, In no apparent distress, Oriented x3, Cooperative HEENT: Atraumatic, Normocephalic, PERRLA, Mucous membr. moist/pink Neck: Supple, 2+ carotid pulse no bruit, JVD not distended, No Thyromegaly Respiratory: Clear to auscultation bilaterally, Normal air movement Cardiovascular: No edema, Normal pulses, Regular rate/rhythm, Normal S1 S2, Abnormal S3, No gallops Gastrointestinal: Normal bowel sounds, Hypoactive, Soft and benign Musculoskeletal: No clubbing, No swelling, No contractures Integumentary: No rashes, No breakdown, No significant lesion Neurological: Normal gait, Normal speech, Normal strength at 5/5 x4 extr, Normal tone, Sensation intact Laboratory Data at Discharge: WBC 5.6 K/uL (4.3-10.9) D 08/29/19 05:26 Hgb 13.8 g/dL (13.6-17.9) 08/29/19 05:26 Hct 40.1 % (39.6-49.0) 08/29/19 05:26 Plt Count 217 K/uL (152-406) D 08/29/19 05:26 PT 12.5 SECONDS (9.5-12.5) 08/28/19 13:10 INR 1.06 08/28/19 13:10 Sodium 141 mmol/L (136-145) 08/29/19 05:26 Potassium 3.9 mmol/L (3.5-5.1) 08/29/19 05:26 BUN 18 mg/dL (7-18) 08/29/19 05:26 Creatinine 0.89 mg/dL (0.55-1.3) 08/29/19 05:26 Glucose 95 mg/dL (74-106) 08/29/19 05:26 Phosphorus 3.4 mg/dL (2.5-4.9) 08/29/19 05:26 Magnesium 2.0 mg/dL (1.8-2.4) 08/29/19 05:26 Total Bilirubin 0.8 mg/dL (0.2-1.0) 08/29/19 05:26 AST 27 U/L (15-37) 08/29/19 05:26 ALT 40 U/L (12-78) 08/29/19 05:26 Alkaline Phosphatase 84 U/L (45-117) 08/29/19 05:26 Troponin I 0.73 ng/mL (0.0-0.045) H* 08/29/19 05:26 Triglycerides 133 mg/dL (<150) 08/29/19 05:26 Cholesterol 138 mg/dL (<200) 08/29/19 05:26 HDL Cholesterol 39 mg/dL (40-60) L 08/29/19 05:26 Cholesterol/HDL Ratio 3.54 08/29/19 05:26 Home Medications: Metoprolol Tartrate 50 mg PO ONCE PRN #30 tablet 08/29/19 New Medications: Metoprolol Tartrate 50 mg PO ONCE PRN #30 tablet PRN Reason: palpitation Patient Discharge Instructions: 1. Please follow road conductor in 2 weeks. 2. Take metoprolol 50 mg if having palpitation. Diet: Regular Activity: Ad reji
[2019-08-29 12:30] VITALS: O2SAT 100
[2019-08-29 12:53] VITALS: BP 111/65; TEMP 97.2
[2019-08-29] MEDS ORDERED: INFLUENZA VACCINE (for 3y+) 0.5 ML DOSE IMVAC ONE (13:00)
[2019-08-29 13:39] LABS: Troponin I 0.4 ng/mL (0.0-0.045)
--- NOTE | 2019-08-29 15:30 | ECHO ---
HEIGHT: 5 ft 5 in WEIGHT: 215 lb 0 oz DATE OF STUDY: 08/29/[address]: Lillie Marrero MD 2-DIMENSIONAL: YES M.MODE: YES DOPPLER: YES COLOR FLOW: YES TDS: NO PORTABLE: NO DEFINITY: NO BUBBLE STUDY: NO DIAGNOSIS: SUPRAVENTRICULAR TACHYCARDIA CARDIAC HISTORY: CATHERIZATION: NO SURGERY: NO PROSTHETIC VALVE: NO PACEMAKER: NO MEASUREMENTS (cm) DIASTOLIC (NORMALS) SYSTOLIC (NORMALS) IVSd 1.0 (0.6-1.2) LA Diam 3.8 (1.9-4.0) LVEF 62% LVIDd 4.4 (3.5-5.7) LVIDs 2.9 (2.0-3.5) %FS 33% LVPWd 1.0 (0.6-1.2) Ao Diam 2.7 (2.0-3.7) 2 DIMENSIONAL ASSESSMENT: RIGHT ATRIUM: NORMAL LEFT ATRIUM: NORMAL RIGHT VENTRICLE: NORMAL LEFT VENTRICLE: NORMAL TRICUSPID VALVE: NORMAL MITRAL VALVE: NORMAL PULMONIC VALVE: NORMAL AORTIC VALVE: NORMAL PERICARDIAL EFFUSION: NONE AORTIC ROOT: NORMAL LEFT VENTRICULAR WALL MOTION: NORMAL DOPPLER/COLOR FLOW: TRACE MITRAL AND TRICUSPID REGURGITATION. NORMAL RIGHT VENTRICULAR SYSTOLIC PRESSURE. COMMENTS: NORMAL 2D ECHOCARDIOGRAM. TRACE MITRAL AND TRICUSPID REGURGITATION TECHNOLOGIST: Chrystal COFFMAN
--- NOTE | 2019-08-29 23:35 | EKG ---
Test Date: 2019-08-29 Test Time: 08:33:33 Instructional Design Consultant: MIGUEL MEASUREMENT RESULTS: Intervals: Rate: 60 RI: 126 QRSD: 118 QT: 428 QTc: 428 [place]: P: 34 RI: 126 QRS: 22 T: 40 INTERPRETIVE STATEMENTS: Normal sinus rhythm [id number] Abnormal ECG Compared to ECG 08/28/2019 13:16:20 Ventricular preexcitation now present Electronically Signed On 08-29-19 23:34:43 SIX PACK LOADER OPERATOR by Arun Wynne
== END 2019-08-29 13:15 | disposition home or self-care (01) | DRG 310 ==
LOC: ER 12:44 → OBSVTOIN 14:59 → ERHOLD 14:59 → 4TH 15:57
PROVIDERS: ADMIT Internal Medicine; ATTEND Internal Medicine
DX: I47.1 Supraventricular tachycardia (principal); R79.89 Other specified abnormal findings of blood chemistry; Z23 Encounter for immunization
CPT/HCPCS: 36415; 71045; 80048; 80053; 80061; 80076; 82553; 83735; 83880; 84100; 84443; 84484; 85025; 85610; 90471; 93005; 93306; 94760; 96374; 99291; J0153; J1650; J7030; Q2035

== ENCOUNTER 2019-10-23 11:36 | Emergency (ER) | payer SELFPAY ==
[2019-10-23] MEDS ORDERED: BUPIVACAINE 0.5% PF 10 ML VIAL ONE (12:20)
[2019-10-23] MEDS ORDERED: LIDOCAINE 1% 20 ML MDV ONE (12:20)
--- NOTE | 2019-10-23 12:45 | RAD REPORT ---
EXAM DESCRIPTION: RAD - Hand Right 3 View - 10/23/2019 12:29 pm CLINICAL HISTORY: PAIN COMPARISON: No comparisons FINDINGS: Soft tissue laceration is seen to the fifth finger. No fracture or foreign body is evident .
--- NOTE | 2019-10-23 13:28 | EDPHYS ---
Physician Documentation [facility] Name: Jeffery Ontiveros Age: 43 yrs Sex: Male : 1975 Arrival Date: 10/23/2019 Time: 11:37 Bed 16 Private MD: ED Physician Luis Ramirez HPI: 10/22 12:15 This 43 yrs old Male presents to ER via Ambulatory with complaints of cp Laceration To Hand. 12:15 The patient has a laceration injury caused by spring of garage door. cp 12:15 The laceration(s) is(are) located on the right hand. Onset: The symptoms/episode cp began/occurred today. Associated signs and symptoms: Pertinent negatives: numbness distal to injury. Historical: - Allergies: 11:54 No Known Allergies; ca1 - PMHx: 11:54 heart problem; Hypertension; ca1 - PSHx: 11:54 None; ca1 - Immunization history:: Adult Immunizations up to date, Last tetanus immunization: up to date < 5 years ago Flu vaccine is up to date. - Social history:: Smoking status: Patient denies any tobacco usage or history of. ROS: 12:20 Constitutional: Negative for body aches, chills, fever. cp 12:20 Cardiovascular: Negative for chest pain. cp 12:20 Respiratory: Negative for cough, shortness of breath, wheezing. 12:20 Abdomen/GI: Negative for abdominal pain, nausea, vomiting, and diarrhea. 12:20 Skin: Positive for laceration(s), of the flores side of right hand. 12:20 All other systems are negative. Exam: 12:30 Constitutional: The patient appears in no acute distress, alert, awake, non-toxic, well cp developed, well nourished. 12:30 Head/Face: Normocephalic, atraumatic. cp 12:30 Musculoskeletal/extremity: ROM: full active range of motion, in the right hand, Perfusion: the extremity is normally perfused throughout, Sensation intact. Tendon exam: specific tendon testing normal through active and passive range of motion 12:30 Skin: injury, avulsion(s), a small of the flores side proximal phalanx right thumb, laceration(s), the wound is approximately 3.5 cm(s), of the palmar aspect of proximal phalanx of right little finger, that can be described as no foreign body, irregular, with mild bleeding. Vital Signs: 11:51 BP 134 / 66; Pulse 78; Resp 17 S; Temp 98.3(O); Pulse Ox 99% on R/A; Weight 97.52 kg ca1 (R); Height 5 ft. 6 in. (167.64 cm) (R); Pain 8/10; 13:15 BP 127 / 72; Pulse 71; Resp 16 S; Pulse Ox 97% on R/A; ca1 14:06 BP 119 / 79; Pulse 80; Resp 17 S; Pulse Ox 99% on R/A; ca1 11:51 Body Mass Index 34.70 (97.52 kg, 167.64 cm) ca1 Procedures: 14:00 Splinting: Splint applied to right hand using Orthoglass splint, volar type. applied by cp tech. Examined by me, post splint application: neurovascular intact, Patient tolerated well. Laceration: 14:00 Wound Repair of 3.5cm ( 1.4in ) subcutaneous laceration to palmar aspect of proximal cp phalanx of right little finger. Irregularly shaped.. Skin/tissue flap noted.. Distal neuro/vascular/tendon intact. Anesthesia: Wound infiltrated with 5 mls of Lido/Marcaine. Wound prep: Moderate cleansing by air technician, Wound irrigation by me. Skin closed with 9 4-0 Prolene using simple sutures and sterile technique. Dressed with Bacitracin. Patient tolerated fair. MDM: 11:53 Patient medically screened. cp 13:00 Differential diagnosis: superficial laceration, tendon injury, vascular injury. cp 13:27 Data reviewed: vital signs, nurses notes, radiologic studies, plain films, and as a cp result, I will discharge patient. 13:27 Counseling: I had a detailed discussion with the patient and/or guardian regarding: the cp historical points, exam findings, and any diagnostic results supporting the discharge/admit diagnosis, radiology results, to return to the emergency department if symptoms worsen or persist or if there are any questions or concerns that arise at home. Response to treatment: the patient's symptoms have markedly improved after treatment, and as a result, I will discharge patient. 10/22 12:07 Order name: XRAY Hand RIGHT 3 View; Complete Time: 13:27 cp 10/22 13:27 Interpretation: Report reviewed. cp 04/09 12:07 Order name: Dressing - Wound; Complete Time: 12:18 10/22 12:07 Order name: Gloves, Sterile; Complete Time: 12:18 10/22 12:07 Order name: Setup Suture Tray; Complete Time: 12:18 10/22 13:26 Order name: Wound dressing; Complete Time: 13:59 cp 10/22 13:26 Order name: Splint: volar hand splint; Complete Time: 13:59 cp Administered Medications: 12:16 Not Given (Pt. reports that he received a Tetnus shot last year): Tetanus-Diphtheria rb1 Toxoid Adult 0.5 ml IM once 13:15 Drug: Marcaine (0.5 %) 10 ml {Note: by VALD Little.} Volume: 10 ml; Route: Infiltration; ca1 13:15 Drug: Lidocaine (1 %) 10 ml Volume: 20 ml; Route: Infiltration; ca1 Disposition: 14:15 Chart complete. 10/23 09:40 Co-signature as Attending Physician, Luis Ramirez MD I agree with the assessment and kdr plan of care. Disposition: 10/23/19 13:28 Discharged to Home. Impression: Laceration without foreign body of right hand. - Condition is Stable. - Discharge Instructions: Laceration Care, Adult. - Prescriptions for Keflex 500 mg Oral Capsule - take 1 capsule by ORAL route every 8 hours for 10 days; 30 capsule. Ibuprofen 800 mg Oral Tablet - take 1 tablet by ORAL route every 8 hours As needed take with food; 30 tablet. - Medication Reconciliation Form, Thank You Letter, Antibiotic Education, Prescription Opioid Use form. - Follow up: Private Physician; When: 7 - 10 days; Reason: Staple/Suture removal. - Problem is new. - Symptoms have improved. Signatures: Dispatcher [employer] EDMS Luis Ramirez MD MD kdr Sidney Villatoro PA PA cp Namrata Lawson RN RN ca1 Danita Sepulveda RN rb1 Corrections: (The following items were deleted from the chart) 10/22 14:10 13:28 10/23/2019 13:28 Discharged to Home. Impression: Laceration without foreign body ca1 of right hand. Condition is Stable. Forms are Medication Reconciliation Form, Thank You Letter, Antibiotic Education, Prescription Opioid Use. Follow up: Private Physician; When: 7 - 10 days; Reason: Staple/Suture removal. Problem is new. Symptoms have improved. cp
--- NOTE | 2019-10-23 13:28 | ER ---
Nurse's Notes [facility] Name: Jeffery Ontiveros Age: 43 yrs Sex: Male : 1975 Arrival Date: 10/23/2019 Time: 11:37 Bed 16 Private MD: Diagnosis: Laceration without foreign body of right hand Presentation: 10/22 11:51 Chief complaint: Patient states: Lac on 5th digit of R hand caused by a spring of the ca1 garage door. Coronavirus screen: Proceed with normal triage. Patient denies a cough. Patient denies shortness of breath or difficulty breathing. Patient denies measured and/or subjective temperature greater than 100.4F prior to today's visit. Patient denies travel on a cruise ship or to a country the [facility] currently lists as an affected area. Patient denies contact with known and/or suspected case of COVID-19. Ebola Screen: Patient negative for fever greater than or equal to 101.5 degrees Fahrenheit, and additional compatible Ebola Virus Disease symptoms Patient denies exposure to infectious person. Patient denies travel to an Ebola-affected area in the 21 days before illness onset. No symptoms or risks identified at this time. Complicating Factors: There are no complicating factors for this patient. Initial Sepsis Screen: Does the patient meet any 2 criteria? No. Patient's initial sepsis screen is negative. Does the patient have a suspected source of infection? No. Patient's initial sepsis screen is negative. Risk Assessment: Do you want to hurt yourself or someone else? Patient reports no desire to harm self or others. Onset of symptoms was October 23, 2019. 11:51 Method Of Arrival: Ambulatory ca1 11:51 Acuity: JAIMEE 4 ca1 Triage Assessment: 12:20 Injury Description: Laceration. ca1 Historical: - Allergies: 11:54 No Known Allergies; ca1 - PMHx: 11:54 heart problem; Hypertension; ca1 - PSHx: 11:54 None; ca1 - Immunization history:: Adult Immunizations up to date, Last tetanus immunization: up to date < 5 years ago Flu vaccine is up to date. - Social history:: Smoking status: Patient denies any tobacco usage or history of. Screenin:55 Abuse screen: Denies threats or abuse. Denies injuries from another. Nutritional ca1 screening: No deficits noted. Tuberculosis screening: No symptoms or risk factors identified. Fall Risk None identified. Assessment: 11:55 General: Appears in no apparent distress. comfortable, Behavior is calm, cooperative, ca1 appropriate for age. Pain: Complains of pain in right hand Pain currently is 8 out of 10 on a pain scale. Neuro: Level of Consciousness is awake, alert, obeys commands, Oriented to person, place, time, situation. Derm: Skin is healthy with good turgor, Skin is pink, warm \T\ dry. Musculoskeletal: Circulation, motion, and sensation intact. Capillary refill < 3 seconds. Injury Description: Avulsion sustained to palmar aspect of proximal phalanx of right little finger is partial was sustained less than 30 minutes ago. 13:15 Reassessment: Patient appears in no apparent distress at this time. Patient and/or ca1 family updated on plan of care and expected duration. Pain level reassessed. Patient is alert, oriented x 3, equal unlabored respirations, skin warm/dry/pink. Injury Description: Laceration is. 14:05 Reassessment: Patient appears in no apparent distress at this time. Patient is alert, ca1 oriented x 3, equal unlabored respirations, skin warm/dry/pink. VLAD Ewing went in room, evaluated the splint, says it's good. Vital Signs: 11:51 BP 134 / 66; Pulse 78; Resp 17 S; Temp 98.3(O); Pulse Ox 99% on R/A; Weight 97.52 kg ca1 (R); Height 5 ft. 6 in. (167.64 cm) (R); Pain 8/10; 13:15 BP 127 / 72; Pulse 71; Resp 16 S; Pulse Ox 97% on R/A; ca1 14:06 BP 119 / 79; Pulse 80; Resp 17 S; Pulse Ox 99% on R/A; ca1 11:51 Body Mass Index 34.70 (97.52 kg, 167.64 cm) ca1 ED Course: 11:37 Patient arrived in ED. as 11:46 Sidney Villatoro PA is PHCP. cp 11:46 Luis Ramirez MD is Attending Physician. cp 11:51 Namrata Lawson RN is Primary Nurse. ca1 11:53 Triage completed. ca1 11:54 Arm band placed on right wrist. ca1 11:55 Patient has correct armband on for positive identification. Bed in low position. Call ca1 light in reach. Side rails up X 1. Pulse ox on. NIBP on. 12:18 Wound care: to laceration located on palmar aspect of proximal phalanx of right little ca1 finger was cleaned with Hibiclens, irrigated with normal saline, Patient tolerated well. by ANA LILIA, Clinical Review Nurse. 12:29 XRAY Hand RIGHT 3 View In Process Unspecified. EDMS 13:15 Assist provider with laceration repair on palmar aspect of proximal phalanx of right ca1 little finger that was between 2.6 to 7.5 cm using sutures. Set up tray. Performed by Sidney CHU Dressed with 4X4s, Neosporin, Patient tolerated well. 13:15 Patient did not have IV access during this emergency room visit. ca1 14:00 Dressings: ABD pad X 1; right hand by ANA LILIA, pm technician. Orthoglass splint: Volar splint ca1 applied on right arm by ANA LILIA, pm technician. Administered Medications: 12:16 Not Given (Pt. reports that he received a Tetnus shot last year): Tetanus-Diphtheria rb1 Toxoid Adult 0.5 ml IM once 13:15 Drug: Marcaine (0.5 %) 10 ml {Note: by VLAD Little.} Volume: 10 ml; Route: Infiltration; ca1 13:15 Drug: Lidocaine (1 %) 10 ml Volume: 20 ml; Route: Infiltration; ca1 Outcome: 13:28 Discharge ordered by . mami 14:09 Discharged to home ambulatory. ca1 14:09 Condition: good 14:09 Discharge instructions given to patient, Instructed on discharge instructions, follow up and referral plans. medication usage, wound care, Demonstrated understanding of instructions, follow-up care, medications, Prescriptions given X 2. 14:10 Patient left the ED. ca1 Signatures: Dispatcher [employer] EDMS Carmen Herring as Sidney Villatoro PA PA cp Acob, Cheryl, RN RN ca1 Danita Sepulveda RN rb1 Corrections: (The following items were deleted from the chart) 12:25 12:18 Wound care: to laceration located on palmar aspect of proximal phalanx of right ca1 little finger was cleaned with Hibiclens, irrigated with normal saline, Patient tolerated well. ca1
[2019-10-23 14:16] VITALS: TEMP 98.3
[2019-10-23 14:20] VITALS: BP 119/79; O2SAT 99
== END 2019-10-23 14:10 | disposition home or self-care (01) ==
LOC: ER 11:36
PROC: 0JQJ0ZZ Repair Right Hand Subcutaneous Tissue and Fascia, Open Approach (ICD-10-PCS; principal; 2019-10-23)
PROC: 2W3CX1Z Immobilization of Right Lower Arm using Splint (ICD-10-PCS; 2019-10-23)
DX: S61.216A Laceration without foreign body of right little finger without damage to nail, initial encounter (principal); W45.8XXA Other foreign body or object entering through skin, initial encounter; Y93.9 Activity, unspecified; Y92.9 Unspecified place or not applicable; I10 Essential (primary) hypertension
CPT/HCPCS: 99284